=== PATIENT | female | born 2000 | race Caucasian/White ===

== ENCOUNTER 2020-12-24 21:59 | Emergency (ER) | payer OTHER ==
[~2020-12-24] VITALS: Ht 157.5 cm; Wt 49.9 kg
[2020-12-24] MEDS ORDERED: DICLOFENAC SODI75 MG PO (23:48)
== END 2020-12-24 23:58 | disposition home or self-care (01) ==
LOC: EMR PED 21:59
DX: S80.02XA Contusion of left knee, initial encounter (principal); W18.39XA Other fall on same level, initial encounter; Y93.H2 Activity, gardening and landscaping; Y92.091 Bathroom in other non-institutional residence as the place of occurrence of the external cause; Y99.8 Other external cause status

== ENCOUNTER 2023-04-29 13:24 | Outpatient (CLI) | payer OTHER ==
[~2023-04-29 13:24] MED LIST: DICLOFENAC SODI75 MG PO
== END 2023-04-29 16:30 | disposition home or self-care (01) ==
LOC: PRENATAL 13:24
PROVIDERS: ATTEND Obstetrics & Gynecology Maternal & Fetal Medicine
DX: O35.3XX0 Maternal care for (suspected) damage to fetus from viral disease in mother, not applicable or unspecified (principal); O44.00 Complete placenta previa NOS or without hemorrhage, unspecified trimester; Z3A.19 19 weeks gestation of pregnancy

== ENCOUNTER 2023-07-21 14:01 | Outpatient (CLI) | payer OTHER | END 2023-07-21 14:03 | disposition home or self-care (01) | LOC: PRENATAL 14:01 | PROVIDERS: ATTEND Obstetrics & Gynecology Maternal & Fetal Medicine | DX: O26.849 Uterine size-date discrepancy, unspecified trimester (principal); O36.8199 Decreased fetal movements, unspecified trimester, other fetus; O28.3 Abnormal ultrasonic finding on antenatal screening of mother; O40.1XX0 Polyhydramnios, first trimester, not applicable or unspecified; Z3A.31 31 weeks gestation of pregnancy ==

== ENCOUNTER 2025-01-23 01:05 | Emergency (ER) | payer OTHER ==
[~2025-01-23] VITALS: Ht 157.5 cm; Wt 58.1 kg
[2025-01-23] MEDS ORDERED: PR NATAL 400 C1 EACH (02:56)
[2025-01-23] MEDS ORDERED: ECOTRIN81 MG (02:56)
[2025-01-23 03:00] VITALS: BP 111/73; O2SAT 99
[2025-01-23] MEDS ORDERED: ACETAMINOPHEN 500 MG GEL..CAP PO STA (03:49)
[2025-01-23] MEDS ORDERED: ACETAMINOPHEN 500 MG GEL..CAP PO ONE (03:50)
== END 2025-01-23 04:00 ==
LOC: ER 01:05
DX: O26.893 Other specified pregnancy related conditions, third trimester (principal); T14.8XXA Other injury of unspecified body region, initial encounter; X83.8XXA Intentional self-harm by other specified means, initial encounter; Y93.89 Activity, other specified; Y92.89 Other specified places as the place of occurrence of the external cause; Y99.9 Unspecified external cause status; Z3A.28 28 weeks gestation of pregnancy